=== PATIENT | male | born 1995 | race Caucasian/White ===

== ENCOUNTER 2016-10-14 | Outpatient (CLI) | payer OTHER | END 2016-10-14 01:14 | disposition critical access hospital (66) | CPT/HCPCS: A0425; A0429 ==

== ENCOUNTER 2016-10-14 01:25 | Emergency (ER) | payer OTHER ==
[2016-10-14] MEDS ORDERED: BACITRACIN OINT TOP STA (02:42)
[2016-10-14] MEDS ORDERED: BACITRACIN OINT TOP ONE (02:50)
== END 2016-10-14 03:27 | disposition home or self-care (01) ==
DX: S00.83XA Contusion of other part of head, initial encounter (principal); S80.211A Abrasion, right knee, initial encounter; Y04.0XXA Assault by unarmed brawl or fight, initial encounter; Y92.29 Other specified public building as the place of occurrence of the external cause
CPT/HCPCS: 70450; 70486; 72125; 99284; A9270